=== PATIENT | female | born 1955 | race Caucasian/White ===

== ENCOUNTER 2017-05-31 15:55 | Emergency (ER) | payer MEDICARE, OTHER ==
[~2017-05-31] VITALS: Ht 170.2 cm; Wt 56.0 kg
[2017-05-31] MEDS ORDERED: acetaminophen 325mg tablet PO ONE (20:00)
[2017-05-31] MEDS ORDERED: ondansetron 4mg rapidly disintigrating tab PO ONE (20:00)
[2017-05-31 20:53] VITALS: BP 113/64
== END 2017-05-31 20:56 | disposition home or self-care (01) ==
LOC: ER 15:58
DX: S09.90XA Unspecified injury of head, initial encounter (principal); Z88.8 Allergy status to other drugs, medicaments and biological substances; Z56.0 Unemployment, unspecified; W54.1XXA Struck by dog, initial encounter; Y93.9 Activity, unspecified; Y92.89 Other specified places as the place of occurrence of the external cause; Y99.8 Other external cause status
CPT/HCPCS: 70450; 99284